=== PATIENT | male | born 1990 | race African-American/Black ===

== ENCOUNTER 2017-05-12 15:57 | Emergency (ER) | payer MEDICAID ==
[~2017-05-12] VITALS: Ht 188 cm; Wt 89.4 kg
[2017-05-12 16:06] VITALS: BP 123/52
[2017-05-12] MEDS ORDERED: BACITRACIN ZINC (16:11)
[2017-05-12] MEDS ORDERED: OXYCODONE 15 MG (16:11)
[2017-05-12] MEDS ORDERED: AMOX CLAV (16:11)
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
--- NOTE | 2017-05-12 17:21 | NUR ---
Patient being evaluated by physician at bedside.
[2017-05-12 17:34] VITALS: BP 121/78
--- NOTE | 2017-05-12 17:34 | NUR ---
Patient discharged with v/s stable. Written and verbal after care instructions given and explained. Patient verbalized understanding. Ambulatory with steady gait. All questions addressed prior to discharge. Advised to follow up with PMD.
== END 2017-05-12 17:34 | disposition home or self-care (01) ==
LOC: MED 15:57
DX: S51.012D Laceration without foreign body of left elbow, subsequent encounter (principal); X58.XXXD Exposure to other specified factors, subsequent encounter
CPT/HCPCS: 99283

== ENCOUNTER 2017-05-26 22:19 | Emergency (ER) | payer MEDICAID ==
[~2017-05-26] VITALS: Ht 188 cm; Wt 89.8 kg
[~2017-05-26 22:19] MED LIST: AMOX CLAV; BACITRACIN ZINC; OXYCODONE 15 MG
[2017-05-26 22:28] VITALS: BP 124/69
[2017-05-26 22:39] VITALS: BP 124/69
--- NOTE | 2017-05-26 22:39 | NUR ---
TO LOBBY, A/W QUEENIE MOREIRA ERMD NOTED
--- NOTE | 2017-05-27 04:00 | NUR ---
PATIENT LEFT WITHOUT BEING SEEN BY DR. Andre. NO FURTHER CARE PROVIDED FOR PATIENT.
== END 2017-05-27 04:00 | disposition left against medical advice (07) ==
LOC: MED 22:19
DX: M25.562 Pain in left knee (principal); Z53.21 Procedure and treatment not carried out due to patient leaving prior to being seen by health care provider
CPT/HCPCS: 73562; 99281

== ENCOUNTER 2017-05-27 08:13 | Emergency (ER) | payer MEDICAID ==
[~2017-05-27] VITALS: Ht 188 cm; Wt 87.1 kg
[2017-05-27 08:23] VITALS: BP 109/56
--- NOTE | 2017-05-27 08:27 | NUR ---
Patient ambulated to bed 4. RN evaluating patient at bedside.
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
--- NOTE | 2017-05-27 08:34 | NUR ---
Patient being evaluated by DR MINER at bedside.
[2017-05-27] MEDS ORDERED: LIDOCAINE 1% 500 MG/50 ML VIAL INJ SCH (08:35)
[2017-05-27] MEDS ORDERED: LIDOCAINE MPF 1% - **ER/OR** 10 MG/ML VIAL ONE (08:39)
[2017-05-27 09:16] VITALS: BP 120/64
== END 2017-05-27 09:16 | disposition home or self-care (01) ==
LOC: MED 08:13
DX: M25.462 Effusion, left knee (principal)
CPT/HCPCS: 26010; 99283; J2001

== ENCOUNTER 2017-06-22 08:35 | Emergency (ER) | payer MEDICAID ==
[~2017-06-22] VITALS: Ht 198.1 cm; Wt 89.0 kg
[2017-06-22 08:44] VITALS: BP 126/84
--- NOTE | 2017-06-22 08:44 | NUR ---
PT AMBULATED TO BED 4
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
--- NOTE | 2017-06-22 08:54 | NUR ---
Patient being evaluated by DR ARRIOLA at bedside.
[2017-06-22] MEDS ORDERED: KETOROLAC 60 MG/2 ML VIAL IM ONE (08:55)
[2017-06-22 09:38] VITALS: BP 121/68
--- NOTE | 2017-06-22 09:38 | NUR ---
Patient discharged with v/s stable. Written and verbal after care instructions given and explained. Patient alert, oriented and verbalized understanding of instructions. Ambulatory with steady gait. All questions addressed prior to discharge. ID band removed. Patient advised to follow up with PMD. Rx of NORCO,MOTRIN, KEFLEX & BACTRIM given. Patient educated on indication of medication including possible reaction and side effects. Opportunity to ask questions provided and answered.
== END 2017-06-22 09:38 | disposition home or self-care (01) ==
LOC: MED 08:35
DX: L03.113 Cellulitis of right upper limb (principal); Z79.899 Other long term (current) drug therapy
CPT/HCPCS: 90471; 90715; 96372; 99284; J1885

== ENCOUNTER 2018-01-20 07:28 | Emergency (ER) | payer MEDICAID ==
[~2018-01-20] VITALS: Ht 188 cm; Wt 88.5 kg
[2018-01-20 07:37] VITALS: BP 116/54
--- NOTE | 2018-01-20 07:43 | NUR ---
PT AMB TO BED 9. REPORT GIVEN TO NALLELY MAYFIELD.
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
--- NOTE | 2018-01-20 07:55 | NUR ---
Patient being evaluated by physician at bedside.
--- NOTE | 2018-01-20 08:00 | NUR ---
Patient being evaluated by physician at bedside.
[2018-01-20 08:10] VITALS: BP 116/54
== END 2018-01-20 08:10 | disposition home or self-care (01) ==
LOC: MED 07:28
DX: S80.861A Insect bite (nonvenomous), right lower leg, initial encounter (principal); L08.9 Local infection of the skin and subcutaneous tissue, unspecified; Z79.899 Other long term (current) drug therapy; W57.XXXA Bitten or stung by nonvenomous insect and other nonvenomous arthropods, initial encounter; Y93.89 Activity, other specified; Y92.89 Other specified places as the place of occurrence of the external cause; Y99.8 Other external cause status
CPT/HCPCS: 99283

== ENCOUNTER 2019-01-25 09:29 | Emergency (ER) | payer MEDICAID ==
[~2019-01-25] VITALS: Ht 190.5 cm; Wt 96.6 kg
[2019-01-25 09:45] VITALS: BP 114/60
--- NOTE | 2019-01-25 09:50 | NUR ---
PATIENT AMBULATED TO BED 8
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
[2019-01-25] MEDS ORDERED: BACITRACIN OINT 500 UNITS/GM PKT TP ONE (10:10)
[2019-01-25] MEDS ORDERED: NEOMYCIN/POLYMYXIN/BACITRACIN 0.9 GM/1 PKT TP ONE (10:10)
--- NOTE | 2019-01-25 10:23 | NUR ---
APPLIED DRESSING TO RIGHT THUMB WITHOUT ANY ISSUES
--- NOTE | 2019-01-25 10:25 | NUR ---
Patient discharged with v/s stable. Written and verbal after care instructions given and explained. Pt advised to be careful with suture site area for the next 2 weeks. May apply vitmin E or aloe vera to area. Patient verbalized understanding. Ambulatory with steady gait. All questions addressed prior to discharge.
[2019-01-25 10:26] VITALS: BP 114/60
== END 2019-01-25 10:25 | disposition home or self-care (01) ==
LOC: MED 09:29
DX: S61.011D Laceration without foreign body of right thumb without damage to nail, subsequent encounter (principal); Z79.899 Other long term (current) drug therapy; X58.XXXD Exposure to other specified factors, subsequent encounter
CPT/HCPCS: 99281

== ENCOUNTER 2019-07-11 23:57 | Emergency (ER) | payer MEDICAID ==
[~2019-07-11] VITALS: Ht 185.4 cm; Wt 95.7 kg
[2019-07-12 00:08] VITALS: BP 124/65
--- NOTE | 2019-07-12 00:12 | NUR ---
PT AMBULATED TO BED #9
--- NOTE | 2019-07-12 00:14 | NUR ---
Zach larkin in [facility] - 07/12/19 at 0016 by NARAYAN PT AMBULATED TO BED #9
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
--- NOTE | 2019-07-12 01:12 | NUR ---
PT TAKEN TO RAD
--- NOTE | 2019-07-12 01:17 | NUR ---
PT RETURN FROM RAD
[2019-07-12 01:36] VITALS: BP 124/65
--- NOTE | 2019-07-12 01:36 | NUR ---
Patient discharged with v/s stable. Written and verbal after care instructions given and explained. Patient alert, oriented and verbalized understanding of instructions. Ambulatory with steady gait. All questions addressed prior to discharge. ID band removed. Patient advised to follow up with PMD. Rx of NAPROSYN, FLEXERIL given. Patient educated on indication of medication including possible reaction and side effects. Opportunity to ask questions provided and answered.
== END 2019-07-12 01:36 | disposition home or self-care (01) ==
LOC: MED 23:57
DX: S39.012A Strain of muscle, fascia and tendon of lower back, initial encounter (principal); Z79.899 Other long term (current) drug therapy; V49.9XXA Car occupant (driver) (passenger) injured in unspecified traffic accident, initial encounter; Y93.89 Activity, other specified; Y92.89 Other specified places as the place of occurrence of the external cause; Y99.8 Other external cause status
CPT/HCPCS: 71046; 99283

== ENCOUNTER 2021-10-20 10:12 | Emergency (ER) | payer MEDICAID ==
[~2021-10-20] VITALS: Ht 188 cm; Wt 105.2 kg
[2021-10-20 10:32] VITALS: BP 143/71
--- NOTE | 2021-10-20 10:32 | NUR ---
PT W/C ASSISTED TO BED 09.
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
--- NOTE | 2021-10-20 10:39 | NUR ---
PT FOOT ELAVATED WITH A BLANKET
--- NOTE | 2021-10-20 10:43 | NUR ---
DR ISLAS AT BEDSIDE FOR EVAL
[2021-10-20] MEDS ORDERED: KETOROLAC 30 MG/ML VIAL IM ONE (10:45)
--- NOTE | 2021-10-20 10:48 | NUR ---
RAD AT BEDSIDE
--- NOTE | 2021-10-20 11:14 | NUR ---
PT OFFERED CRANBERRY JUICE AND CRACKERS
[2021-10-20] MEDS ORDERED: IBUP-2213 PO (11:40)
--- NOTE | 2021-10-20 11:48 | NUR ---
PER ER MD, PT R ANKLE PLACED IN USMAN WRAPS X 3. PT ALSO GIVEN CRUTCHES AND WAS INSTRUCTED ON HOW TO USE THEM. PT RETURNED PROPER DEMONSTRATION AND KNOWLEDGE IN REGARDS TO CRUTCHES BEING PROPERLY USED. CRUTCHES PLACED AT PROPER HEIGHT FOR PT. PT HAD NO QUESTIONS.
--- NOTE | 2021-10-20 11:53 | NUR ---
Patient discharged with v/s stable. Written and verbal after care instructions given and explained. Patient alert, oriented and verbalized understanding of instructions. Ambulatory with steady gait WITH CRUTCHES. All questions addressed prior to discharge. ID band removed. Patient advised to follow up with PMD. Rx of MOTRIN given. Patient educated on indication of medication including possible reaction and side effects. Opportunity to ask questions provided and answered.
== END 2021-10-20 11:53 | disposition home or self-care (01) ==
LOC: MED 10:12
DX: S93.401A Sprain of unspecified ligament of right ankle, initial encounter (principal); M79.671 Pain in right foot; W18.30XA Fall on same level, unspecified, initial encounter; Y93.89 Activity, other specified; Y92.89 Other specified places as the place of occurrence of the external cause; Y99.8 Other external cause status
CPT/HCPCS: 73610; 73630; 96372; 99284; J1885

== ENCOUNTER 2023-05-20 21:34 | Emergency (ER) | payer MEDICAID ==
[~2023-05-20] VITALS: Ht 185.4 cm; Wt 94.3 kg
[~2023-05-20 21:34] MED LIST changes: +IBUP-2213 PO
[2023-05-20 21:45] VITALS: BP 134/84; PULSE 95; RESP 18; TEMP 99.2; O2SAT 96
[2023-05-20 22:09] VITALS: O2SAT 96
[2023-05-20 22:30] LABS: FLU A ANTIGEN negative (NEGATIVE); FLU B ANTIGEN negative (NEGATIVE)
[2023-05-20] MEDS ORDERED: AZIT250T11 PO ×2 (23:25→23:27)
[2023-05-20] MEDS ORDERED: guaiFENesin DM 200/20 MG-10 ML 10 ML UDC PO ONE (23:25)
[2023-05-20] MEDS ORDERED: DEXT30SE7 PO ×2 (23:25→23:27)
== END 2023-05-20 23:45 | disposition home or self-care (01) ==
LOC: MED 21:34
DX: J18.9 Pneumonia, unspecified organism (principal); Z20.822 Contact with and (suspected) exposure to COVID-19; Z79.899 Other long term (current) drug therapy; Z79.2 Long term (current) use of antibiotics; Z79.1 Long term (current) use of non-steroidal anti-inflammatories (NSAID)
CPT/HCPCS: 71045; 87426; 87804; 99284; Q0092

== ENCOUNTER 2023-08-03 09:17 | Emergency (ER) | payer MEDICAID ==
[~2023-08-03] VITALS: Ht 188 cm; Wt 95.3 kg
[~2023-08-03 09:17] MED LIST changes: +AZIT250T11 PO; +DEXT30SE7 PO
[2023-08-03 09:23] VITALS: BP 131/60; PULSE 66; RESP 18; TEMP 97.7; O2SAT 99
[2023-08-03] MEDS: KETOROLAC 30 MG/ML VIAL IM ONE (11:35)
[2023-08-03] MEDS ORDERED: LID5T TP (12:38)
[2023-08-03] MEDS ORDERED: IBUP-2213 PO (12:38)
[2023-08-03 12:49] VITALS: BP 122/82; PULSE 78; RESP 16; TEMP 98; O2SAT 99
== END 2023-08-03 12:49 | disposition home or self-care (01) ==
LOC: MED 09:17
DX: S20.219A Contusion of unspecified front wall of thorax, initial encounter (principal); Z79.1 Long term (current) use of non-steroidal anti-inflammatories (NSAID); Z79.899 Other long term (current) drug therapy; X58.XXXA Exposure to other specified factors, initial encounter; Y93.89 Activity, other specified; Y92.89 Other specified places as the place of occurrence of the external cause; Y99.8 Other external cause status
CPT/HCPCS: 71045; 93005; 96372; 99283; J1885